=== PATIENT | female | born 1980 | race African-American/Black ===

== ENCOUNTER 2021-02-23 16:07 | Emergency (ER) | payer SELFPAY ==
[2021-02-23] MEDS ORDERED: Ondansetron PF 4 MG/2 ML Vial ONE (16:32)
[2021-02-23] MEDS ORDERED: Morphine 4 MG/ML VIAL ONE (16:32)
[2021-02-23 16:38] LABS: #Basophils 0.1 10x3/uL (0.0-0.2); #Eosinphils 0.2 10x3/uL (0.0-0.5); #Monocytes 0.5 10x3/uL (0.0-1.1); #Neutrophils 3.9 10x3/uL (1.5-8.4); %Basophils 0.7 % (0.0-2.0); %Eosinophils 2.9 % (0.0-6.0); %Lymphocytes 30.6 % (18.0-47.0); %Monocytes 7.9 % (0.0-10.0); %Neutrophils 57.6 % (40.0-75.0); Mean Corpuscular HGB CONC 31.7 g/dL (32.0-36.0); Mean Corpuscular Hemoglobin 25.4 pg (27.0-33.0); Mean Corpuscular Volume 79.9 fl (81.6-98.3); Mean Platelet Volume 8.5 fl (7.4-10.4); Platelet Count 545 10x3/uL (150-450); RBC Distribution Width 14.8 % (11.5-14.5); Red Blood Cell (RBC) Count 4.73 10x6/uL (3.90-5.03); White Blood Cell (WBC) Count 6.8 10x3/uL (3.5-10.5)
[2021-02-23 16:44] LABS: BHCG - Serum Negative (NEGATIVE); Pregs Control Background? CLEAR/WHITE (CLR/WHITE); Pregs Control Bar Appear? YES (CONTROL BAR)
[2021-02-23 16:55] LABS: ALT (SGPT) 12 U/L (8-55); AST (SGOT) 13 U/L (5-34); Albumin 4.1 g/dL (3.5-5.0); Alkaline Phosphatase 66 U/L (40-110); Anion Gap 14 mmol/L (10-20); BUN (Urea Nitrogen) 12 mg/dL (7.0-18.7); Bilirubin, Total 0.3 mg/dL (0.2-1.2); Calc. Creatinine Clearance 0 mL/min (70-130); Calcium 9.3 mg/dL (7.8-10.44); Carbon Dioxide 22 mmol/L (22-29); Chloride 105 mmol/L (98-107); Globulin 3.4 g/dL (2.4-3.5); Glucose 112 mg/dL (70-105); Lipase 28 U/L (8-78); Potassium 3.7 mmol/L (3.5-5.1); Protein, Total 7.5 g/dL (6.0-8.3); Sodium 137 mmol/L (136-145)
[2021-02-23] MEDS ORDERED: methylPREDNISolone Acetate 40 mg/ml Vial ONE (17:30)
[2021-02-23] MEDS ORDERED: diphenhydrAMINE 50 MG/ML VIAL ONE (17:31)
[2021-02-23] MEDS ORDERED: Famotidine/PF 20 mg/2ml Vial ONE (17:31)
[2021-02-23] MEDS ORDERED: methylPREDNISolone Sod Succ 40 MG VIAL ONE (17:45)
[2021-02-23 18:32] LABS: Bilirubin Neg (Negative); Blood, Urine Negative (Negative); Clarity Clear (Clear); Glucose, Urine (Dipstick) Normal (Negative); Ketone, Urine Negative (Negative); Leukocyte 25 (Negative); Nitrite Negative (Negative); Protein, Urine (Dipstick) 15 mg/dl (Neg-Trace); Specific Gravity, Urine 1.015 (1.002-1.036)
[2021-02-23 18:46] LABS: Bacteria/HPF 1+ HPF (None Seen); Mucous/LPF 1+ LPF (<2+); RBC/HPF None Seen HPF (0-3); Squamous Epithelial 0-3 HPF (0-3); WBC/HPF 0-3 HPF (0-3)
[2021-02-23] MEDS ORDERED: Mag-Al Plus 1200 MG/1200 MG/120 MG/30 ML UDCUP ONE (21:42)
[2021-02-23] MEDS ORDERED: Lidocaine Viscous Sol 2% 15 ml UD Cup ONE (21:42)
== END 2021-02-23 21:30 | disposition home or self-care (01) ==
LOC: CSHERS 16:07
DX: R10.11 Right upper quadrant pain (principal); R10.12 Left upper quadrant pain; I10 Essential (primary) hypertension
CPT/HCPCS: 36415; 74177; 80053; 81003; 81015; 83690; 84703; 85025; 96374; 96375; J1200; J2270; J2405; J2920; S0028